=== PATIENT | female | born 2000 | race Caucasian/White ===

== ENCOUNTER → 2021-10-29 | Outpatient (CLI) | payer OTHER | LOC: M LAB 16:01 | PROVIDERS: ATTEND Obstetrics & Gynecology | DX: Z36.9 Encounter for antenatal screening, unspecified (principal) ==

== ENCOUNTER 2021-10-31 14:36 | Day surgery (SDC) | payer OTHER ==
[~2021-10-31] VITALS: Ht 157.5 cm; Wt 94.8 kg
[2021-10-31] MEDS ORDERED: ECOT81TA5 PO (14:46)
[2021-10-31] MEDS ORDERED: LOVE1INJ SC (14:46)
[2021-10-31] MEDS ORDERED: PREN1CHW PO (14:46)
[2021-10-31 15:50] LABS: HEMATOCRIT 36.7 % (36.0-47.0); HEMOGLOBIN 11.2 g/dl (12.0-15.5); MEAN CORPUSCULAR HEMOGLOBIN 22.1 pg (27.0-33.0); MEAN CORPUSCULAR HGB CONC 30.5 g/dl (32.0-36.5); MEAN CORPUSCULAR VOLUME 72.5 fl (80.0-96.0); PLATELET COUNT, AUTOMATED 387 10^3/uL (150-450); RED BLOOD COUNT 5.06 10^6/uL (4.00-5.40)
[2021-10-31] MEDS ORDERED: MIDAZOLAM INJ 2MG/2ML VIAL (J2250 PER 1MG) As Ordered ONE ×2 (17:48→19:39)
[2021-10-31] MEDS ORDERED: dexameTHASONE 4 MG/ML 1ML VIAL (J1100 PER 1MG) As Ordered ONE (17:49)
[2021-10-31] MEDS ORDERED: KETOROLAC 60MG 2ML VIAL As Ordered ONE (17:49)
[2021-10-31] MEDS ORDERED: LIDOCAINE 2% 100MG/5ML SDV (FOR ANES.) As Ordered ONE (17:49)
[2021-10-31] MEDS ORDERED: propofoL 200 MG/20 ML VIAL As Ordered ONE ×2 (17:49→18:32)
[2021-10-31] MEDS ORDERED: ONDANSETRON 4MG 2ML VIAL As Ordered ONE (17:49)
[2021-10-31] MEDS ORDERED: fentaNYL 100 MCG/2 ML INJECTION As Ordered ONE (17:49)
[2021-10-31] MEDS ORDERED: METOCLOPRAMIDE INJ 10MG/2ML VIAL (J2765 PER 1) As Ordered ONE (17:49)
[2021-10-31] MEDS ORDERED: LIDOCAINE 1% SDV 30ML VIAL As Ordered ONE (18:00)
[2021-10-31] MEDS: DOXYCYCLINE HYCLATE 100 MG in D5W MINI-BAG PLUS 100 ML IV SCH (18:20)
[2021-10-31] MEDS ORDERED: LR 1,000 ML IV SCH (19:35)
[2021-10-31] MEDS ORDERED: PERCOCET 5MG/325MG TAB PO PRN (19:35)
[2021-10-31] MEDS ORDERED: fentaNYL 100 MCG/2 ML INJECTION IV PRN (19:35)
[2021-10-31] MEDS ORDERED: ONDANSETRON 4MG 2ML VIAL IV PRN (19:35)
[2021-10-31] MEDS ORDERED: MORPHINE 2 MG/ML 1ML VIAL IV PRN (19:35)
[2021-10-31] MEDS ORDERED: MIDAZOLAM INJ 2MG/2ML VIAL (J2250 PER 1MG) IV ONE (20:05)
[2021-10-31 20:40] VITALS: BP 131/89
== END 2021-10-31 21:08 | disposition home or self-care (01) ==
LOC: M SDC 14:36
PROVIDERS: ATTEND Obstetrics & Gynecology
DX: O02.1 Missed abortion (principal)
CPT/HCPCS: 59812; 85027; 86850; 86900; 86901; 87426; 88305; J1100; J1885; J2250; J2405; J2765; J3010

== ENCOUNTER → 2022-01-10 | Outpatient (CLI) | payer OTHER ==
[~2022-01-10] MED LIST: ECOT81TA5 PO; LOVE1INJ SC; PREN1CHW PO
[2022-01-10 13:41] LABS: BASO # 0.1 10^3/uL (0.0-0.2); BASO % 0.7 % (0.0-1.0); EOS # 0.4 10^3/uL (0.0-0.5); EOS % 4.8 % (0.0-3.0); HEMATOCRIT 38.8 % (36.0-47.0); HEMOGLOBIN 11.5 g/dl (12.0-15.5); LYMPH # 2.6 10^3/uL (1.5-5.0); LYMPH % 31.1 % (24.0-44.0); MEAN CORPUSCULAR HGB CONC 29.6 g/dl (32.0-36.5); MEAN CORPUSCULAR VOLUME 74.2 fl (80.0-96.0); MONO # 0.6 10^3/uL (0.0-0.8); NEUTROPHILS # 4.6 10^3/uL (1.5-8.5); NEUTROPHILS % 56.3 % (36.0-66.0); PLATELET COUNT, AUTOMATED 449 10^3/uL (150-450); RED BLOOD COUNT 5.23 10^6/uL (4.00-5.40); WHITE BLOOD COUNT 8.2 10^3/uL (4.0-10.0)
[2022-01-10 14:18] LABS: ALT/SGPT 20 U/L (12-78); BILIRUBIN,TOTAL 0.4 MG/DL (0.2-1.0); BLOOD UREA NITROGEN 9 MG/DL (7-18); CALCIUM LEVEL 9.5 MG/DL (8.5-10.1); CARBON DIOXIDE LEVEL 26 MEQ/L (21-32); CHLORIDE LEVEL 106 MEQ/L (98-107); CREATININE FOR GFR 0.76 MG/DL (0.55-1.30); GLOMERULAR FILTRATION RATE > 60.0 (>60); GLUCOSE, FASTING 83 MG/DL (70-100); POTASSIUM SERUM 4.5 MEQ/L (3.5-5.1); SODIUM LEVEL 137 MEQ/L (136-145); TOTAL PROTEIN 7.5 GM/DL (6.4-8.2)
[2022-01-10 14:19] LABS: HCG, SERUM QUANTITATIVE 242 MIU/ML
== END ==
LOC: M LAB 12:34
PROVIDERS: ATTEND Obstetrics & Gynecology
DX: O01.0 Classical hydatidiform mole (principal)

== ENCOUNTER → 2022-02-08 | Outpatient (CLI) | payer OTHER ==
[~2022-02-08] MED LIST changes: +GASTROGRAFIN SOLUTION 30ML As Ordered ONE; +ISOVUE-370 76% 100ML VIAL As Ordered ONE
== END ==
LOC: M RAD 08:05
PROVIDERS: ATTEND Obstetrics & Gynecology
DX: O01.9 Hydatidiform mole, unspecified (principal)

== ENCOUNTER 2022-03-09 21:21 | Inpatient (IN) | payer OTHER ==
[~2022-03-09] VITALS: Ht 157.5 cm; Wt 96.3 kg
[~2022-03-09 21:21] MED LIST changes: -GASTROGRAFIN SOLUTION 30ML As Ordered ONE; -ISOVUE-370 76% 100ML VIAL As Ordered ONE
[2022-03-09] MEDS ORDERED: IBUP1TAB5 PO (21:35)
[2022-03-09] MEDS ORDERED: METH25IN12 SC (21:35)
[2022-03-10] MEDS ORDERED: GI COCKTAIL 50ML BTL(HYOSCYAMINE/MAALOX/LIDOCAINE VISCOUS)(1:3:1) PO ONE (00:45)
[2022-03-10] MEDS ORDERED: NS 1,000 ML IV ONE (01:20)
[2022-03-10 02:32] LABS: HEMATOCRIT 37.5 % (36.0-47.0); HEMOGLOBIN 11.3 g/dl (12.0-15.5); MEAN CORPUSCULAR HEMOGLOBIN 22.3 pg (27.0-33.0); MEAN CORPUSCULAR HGB CONC 30.1 g/dl (32.0-36.5); PLATELET COUNT, AUTOMATED 453 10^3/uL (150-450); RED BLOOD COUNT 5.07 10^6/uL (4.00-5.40); WHITE BLOOD COUNT 11.1 10^3/uL (4.0-10.0)
[2022-03-10 02:57] LABS: ATYPICAL LYMPH 8 % (0-5); BASOPHILS 2 % (0-1); EOSINOPHILS 2 % (0-3); LYMPHOCYTES 40 % (16-44); MONOCYTES 2 % (0-5); NEUTROPHILS 46 % (28-66)
[2022-03-10 02:58] LABS: OVALOCYTES 1+
[2022-03-10 02:59] LABS: ANISOCYTOSIS 2+; TOXIC VACUOLATION 1+
[2022-03-10 03:03] LABS: ALBUMIN 3.4 G/DL (3.2-5.2); ALKALINE PHOSPHATASE 50 U/L (46-116); ALT/SGPT 20 U/L (7.0-40); AST/SGOT 12 U/L (<34); BILIRUBIN,TOTAL 0.5 MG/DL (0.3-1.2); BLOOD UREA NITROGEN 20 MG/DL (9-23); CALCIUM LEVEL 9.4 MG/DL (8.5-10.1); CARBON DIOXIDE LEVEL 26 MMOL/L (20-31); CHLORIDE LEVEL 100 MMOL/L (98-107); CREATININE FOR GFR 0.62 MG/DL (0.55-1.30); GLOMERULAR FILTRATION RATE > 60.0 (>60); GLUCOSE, FASTING 89 MG/DL (60-100); HYPOCHROMASIA 1+; PLATELET ESTIMATE INCREASED (NORMAL); POTASSIUM SERUM 4.3 MMOL/L (3.5-5.1); SODIUM LEVEL 138 MMOL/L (136-145); TOTAL PROTEIN 6.2 G/DL (5.7-8.2)
[2022-03-10 03:04] LABS: MICROCYTOSIS 2+; SMUDGE CELLS 1+
[2022-03-10] MEDS ORDERED: KETOROLAC 30 MG/ML 1ML VIAL IV ONE (03:55)
[2022-03-10 05:00] LABS: HCG, SERUM QUANTITATIVE 142.8 MIU/ML (<4.2)
[2022-03-10 05:05] LABS: CK-MB VALUE MASS < 1.0 NG/ML (<3.6); MAGNESIUM LEVEL 1.6 MG/DL (1.8-2.4)
[2022-03-10 05:06] LABS: CPK CREATINE PHOSPHOKINASE 15 U/L (34-145); MB/CK RELATIVE INDEX 6.66 (< OR =4)
[2022-03-10 05:09] LABS: THYROID STIMULATING HORMONE 3.567 uIU/ML (0.55-4.78)
[2022-03-10] MEDS ORDERED: MAG SULF 1GM/100ML (MAG RUN) 1 GM in IV 1 EA IV ONE (05:15)
[2022-03-10] MEDS ORDERED: HOME MED LIST COMPLETE! XX SCH (05:20)
[2022-03-10] MEDS ORDERED: ACETAMINOPHEN TAB 650MG DOSE (2X325MG) PO PRN (05:30)
[2022-03-10] MEDS ORDERED: LR 1,000 ML IV ONE (05:30)
[2022-03-10] MEDS ORDERED: CALCIUM CARBONATE 500 MG CHEW U/D PO PRN (05:30)
[2022-03-10] MEDS ORDERED: NYSTATIN 500,000 U/5 ML SUSP UDC SS SCH (06:00)
[2022-03-10 06:22] LABS: TOTAL IRON BINDING CAPACITY 365 UG/DL (250-425)
[2022-03-10 06:24] LABS: FERRITIN 20.3 NG/ML (7.3-270.7)
[2022-03-10 06:25] LABS: FOLATE 9.3 NG/ML (>5.4); VITAMIN B12 LEVEL 300 PG/ML (211-911)
[2022-03-10 06:28] LABS: IRON (FE) 79 UG/DL (50-170); PERCENT SATURATION 21.6 % (13.2-45.0)
[2022-03-10] MEDS ORDERED: FAMOTIDINE 20 MG TAB PO SCH (09:00)
[2022-03-10 10:00] VITALS: BP_SYST 124; BP_SYST 129; BP_SYST 130; BP_DIAS 59; BP_DIAS 72; BP_DIAS 73
[2022-03-10] MEDS: FOLIC ACID 1MG TAB PO SCH (11:59)
[2022-03-10] MEDS: MAALOX 30 ML SUSP *UDC PO PRN ×2 (12:21→23:15)
[2022-03-10 14:02] VITALS: BP 132/64
[2022-03-10] MEDS: SUCRALFATE SUSP 1GM/10ML UD PO SCH ×2 (17:15→23:15)
[2022-03-10] MEDS ORDERED: PANTOPRAZOLE 40MG VIAL IV SCH (18:00)
[2022-03-10] MEDS: ENOXAPARIN 40MG/0.4ML SYRINGE (J1650 PER 10MG) SC SCH (23:15)
[2022-03-11] MEDS: SUCRALFATE SUSP 1GM/10ML UD PO SCH ×3 (06:19→17:14)
[2022-03-11 06:39] LABS: BASO % 0.3 % (0.0-1.0); EOS # 0.5 10^3/uL (0.0-0.5); EOS % 5.8 % (0.0-3.0); HEMATOCRIT 35.5 % (36.0-47.0); HEMOGLOBIN 10.7 g/dl (12.0-15.5); LYMPH # 3.1 10^3/uL (1.5-5.0); LYMPH % 34.2 % (24.0-44.0); MEAN CORPUSCULAR HEMOGLOBIN 22.3 pg (27.0-33.0); MEAN CORPUSCULAR HGB CONC 30.1 g/dl (32.0-36.5); MEAN CORPUSCULAR VOLUME 74.1 fl (80.0-96.0); MONO % 0.4 % (2.0-8.0); NEUTROPHILS # 5.4 10^3/uL (1.5-8.5); NEUTROPHILS % 59.1 % (36.0-66.0); PLATELET COUNT, AUTOMATED 350 10^3/uL (150-450); RED BLOOD COUNT 4.79 10^6/uL (4.00-5.40); WHITE BLOOD COUNT 9.1 10^3/uL (4.0-10.0)
[2022-03-11 07:05] LABS: BLOOD UREA NITROGEN 12 MG/DL (9-23); CALCIUM LEVEL 8.5 MG/DL (8.5-10.1); CARBON DIOXIDE LEVEL 27 MMOL/L (20-31); CHLORIDE LEVEL 101 MMOL/L (98-107); CREATININE FOR GFR 0.61 MG/DL (0.55-1.30); GLOMERULAR FILTRATION RATE > 60.0 (>60); GLUCOSE, FASTING 80 MG/DL (60-100); POTASSIUM SERUM 4.4 MMOL/L (3.5-5.1); SODIUM LEVEL 135 MMOL/L (136-145)
[2022-03-11] MEDS ORDERED: ONDANSETRON 4MG 2ML VIAL IV PRN (08:35)
[2022-03-11] MEDS ORDERED: ONDANSETRON 4MG 2ML VIAL As Ordered ONE (08:36)
[2022-03-11] MEDS ORDERED: ENOXAPARIN 30MG/0.3ML SYRINGE (J1650 PER 10MG) SC SCH (09:00)
[2022-03-11 10:07] LABS: LIPASE 25 U/L (12-53)
[2022-03-11] MEDS ORDERED: PROHANCE 279.3MG/ML 15ML VIAL As Ordered ONE (12:46)
[2022-03-11] MEDS ORDERED: PROHANCE 279.3MG/ML 5ML VIAL As Ordered ONE (12:46)
[2022-03-11] MEDS: FOLIC ACID 1MG TAB PO SCH (13:55)
[2022-03-11 16:00] VITALS: BP 107/62
[2022-03-11] MEDS: NS 1,000 ML IV SCH (16:45)
[2022-03-11] MEDS: PANTOPRAZOLE 40MG VIAL IV SCH (17:14)
[2022-03-11 20:20] VITALS: BP 108/63
[2022-03-11] MEDS: ENOXAPARIN 40MG/0.4ML SYRINGE (J1650 PER 10MG) SC SCH (20:49)
[2022-03-11] MEDS: LIDOCAINE VISCOUS 2% SOLN 15ML UDC SSP PRN (21:50)
[2022-03-12] MEDS: SUCRALFATE SUSP 1GM/10ML UD PO SCH ×3 (00:28→12:40)
[2022-03-12] MEDS: NS 1,000 ML IV SCH (04:46)
[2022-03-12 05:24] VITALS: BP 109/66
[2022-03-12] MEDS: PANTOPRAZOLE 40MG VIAL IV SCH (05:25)
[2022-03-12] MEDS: LIDOCAINE VISCOUS 2% SOLN 15ML UDC SSP PRN ×2 (05:26→14:15)
[2022-03-12 06:04] LABS: HEMATOCRIT 34.3 % (36.0-47.0); HEMOGLOBIN 10.3 g/dl (12.0-15.5); MEAN CORPUSCULAR HEMOGLOBIN 22.4 pg (27.0-33.0); MEAN CORPUSCULAR VOLUME 74.7 fl (80.0-96.0); PLATELET COUNT, AUTOMATED 326 10^3/uL (150-450); RED BLOOD COUNT 4.59 10^6/uL (4.00-5.40); WHITE BLOOD COUNT 9.2 10^3/uL (4.0-10.0)
[2022-03-12 06:26] LABS: BLOOD UREA NITROGEN 9 MG/DL (9-23); CALCIUM LEVEL 8.2 MG/DL (8.5-10.1); CARBON DIOXIDE LEVEL 24 MMOL/L (20-31); CHLORIDE LEVEL 102 MMOL/L (98-107); CREATININE FOR GFR 0.61 MG/DL (0.55-1.30); GLOMERULAR FILTRATION RATE > 60.0 (>60); GLUCOSE, FASTING 118 MG/DL (60-100); SODIUM LEVEL 136 MMOL/L (136-145)
[2022-03-12] MEDS: FOLIC ACID 1MG TAB PO SCH (09:05)
[2022-03-12] MEDS ORDERED: FOLI1TAB11 PO (12:42)
[2022-03-12] MEDS ORDERED: CARA1TAB6 PO (12:42)
[2022-03-12] MEDS ORDERED: ONDA4TAB6 PO (12:42)
[2022-03-12] MEDS ORDERED: PROT1TAB2 PO (12:42)
[2022-03-12] MEDS ORDERED: BACITRACIN OINTMENT 30GM TUBE TOP PRN (13:15)
== END 2022-03-12 14:43 | disposition home or self-care (01) | DRG 149 ==
LOC: M ED 21:21 → M ED INP 03-10 05:30 → ENRESERV 03-11 12:53 → M MSPAV 03-11 16:14 → OBSVTOIN 03-12 09:10
PROVIDERS: ADMIT Internal Medicine; ATTEND Internal Medicine
DX: R42 Dizziness and giddiness (principal); Z87.59 Personal history of other complications of pregnancy, childbirth and the puerperium; R91.8 Other nonspecific abnormal finding of lung field; R12 Heartburn; Z92.21 Personal history of antineoplastic chemotherapy; Z88.2 Allergy status to sulfonamides; Z79.899 Other long term (current) drug therapy; R11.0 Nausea

== ENCOUNTER 2022-07-09 00:24 | Emergency (ER) | payer OTHER ==
[~2022-07-09] VITALS: Ht 157.5 cm; Wt 105.5 kg
[~2022-07-09 00:24] MED LIST changes: +CARA1TAB6 PO; +FERR325T3 PO; +FOLI1TAB11 PO; +IBUP1TAB5 PO; +MAGICMW SSP; +METH25IN12 SC; +NYSTOI TOP; +ONDA4TAB6 PO; +PROC10TA5 PO; +PROT1TAB2 PO; +SILV1CRE60 TOP; +TRIA25CR TOP
[2022-07-09 05:41] LABS: BASO # 0.2 10^3/uL (0.0-0.2); BASO % 1.2 % (0.0-1.0); EOS # 0.3 10^3/uL (0.0-0.5); EOS % 1.5 % (0.0-3.0); HEMATOCRIT 37.8 % (36.0-47.0); HEMOGLOBIN 11.2 g/dl (12.0-15.5); LYMPH # 3.2 10^3/uL (1.5-5.0); LYMPH % 15.5 % (24.0-44.0); MEAN CORPUSCULAR HEMOGLOBIN 22.7 pg (27.0-33.0); MEAN CORPUSCULAR HGB CONC 29.6 g/dl (32.0-36.5); MEAN CORPUSCULAR VOLUME 76.5 fl (80.0-96.0); MONO # 1.1 10^3/uL (0.0-0.8); MONO % 5.4 % (2.0-8.0); NEUTROPHILS # 15.1 10^3/uL (1.5-8.5); NEUTROPHILS % 72.9 % (36.0-66.0); PLATELET COUNT, AUTOMATED 529 10^3/uL (150-450); RED BLOOD COUNT 4.94 10^6/uL (4.00-5.40); WHITE BLOOD COUNT 20.7 10^3/uL (4.0-10.0)
[2022-07-09] MEDS ORDERED: ISOVUE-370 76% 100ML VIAL As Ordered ONE (06:23)
[2022-07-09 06:32] LABS: HCG, SERUM QUALITATIVE NEGATIVE (NEGATIVE)
[2022-07-09] MEDS ORDERED: BACI500O8 TOP (08:54)
[2022-07-09 09:06] VITALS: BP 103/65
== END 2022-07-09 09:08 | disposition home or self-care (01) ==
LOC: M ED 00:24 → EDBD 00:24 → M ED 09:08
DX: S20.219A Contusion of unspecified front wall of thorax, initial encounter (principal); V48.5XXA Car driver injured in noncollision transport accident in traffic accident, initial encounter; Y92.410 Unspecified street and highway as the place of occurrence of the external cause
CPT/HCPCS: 36415; 70450; 71260; 72125; 72128; 72131; 73030; 73060; 73610; 73630; 74177; 80047; 84703; 85025; 93041; 94760; 99285; Q9967